=== PATIENT | female | born 1940 | race Caucasian/White ===

== ENCOUNTER → 2017-06-10 | Outpatient (CLI) | payer OTHER ==
[~2017-06-10] MED LIST: AMITRIPTYLINE H10 MG PO; ASPIRIN CHEW81 MG PO; COLACE100 MG PO; DOCUSATE SODIU100 MG PO; JENTADUETO 2.51 EACH; METHADONE HCL10 MG PO; METHADONE10 MG PO; MYRBETRIQ50 MG; NORTRIPTYLINE H10 MG PO; PLAVIX75 MG PO; POTASSIUM CHLO10 ME1 PO; TEMAZEPAM15 MG PO; ULTRAM 50MG50 MG PO; Z.0.TEMAZEPAM15 MG PO; Z.0.ULTRAM 50MG50 MG PO; ZYPREXA5 MG
[2017-06-10 17:58] LABS: ANION GAP 13.5 mmol/L (8-16); BLOOD UREA NITROGEN 10 mg/dL (7-26); BUN/CREATININE RATIO 13 (6-25); CALCIUM 9.9 mg/dL (8.4-10.2); CARBON DIOXIDE 28 mmol/L (22-29); CHLORIDE 106 mmol/L (98-107); CREATININE, SERUM 0.77 mg/dL (0.57-1.11); EST GLOMERULAR FILTRATION RATE > 60 ML/MIN (60-); GLUCOSE 118 mg/dL (74-118); POTASSIUM 3.5 mmol/L (3.5-5.1); SODIUM 144 mmol/L (136-145)
[2017-06-10 18:05] LABS: BASOPHILS % 0.4 % (0.0-1.0); EOSINOPHILS # (AUTO) 0.2 (0.0-0.4); EOSINOPHILS % 2.4 % (0.0-6.0); HEMATOCRIT 38.5 % (34.2-44.1); HEMOGLOBIN 12.1 g/dL (12.0-16.0); LYMPHOCYTES # (AUTO) 1.9 (1.0-3.2); LYMPHOCYTES % 25.5 % (18.0-39.1); MEAN CORPUSCULAR HEMOGLOBIN 27.7 pg (28-32); MEAN CORPUSCULAR HGB CONC 31.4 g/dL (31-35); MEAN CORPUSCULAR VOLUME 88.1 fL (81-99); MONOCYTES # (AUTO) 0.7 (0.2-0.8); MONOCYTES % 9.5 % (4.4-11.3); NEUTROPHILS # (AUTO) 4.6 (2.1-6.9); NEUTROPHILS % 61.9 % (38.7-80.0); PLATELET COUNT 314 x10e3/uL (140-360); RED BLOOD COUNT 4.37 x10e6/uL (3.6-5.1); RED CELL DISTRIBUTION WIDTH 14.3 % (11.7-14.4)
== END ==
LOC: NPA 12:22
DX: Z02.89 Encounter for other administrative examinations (principal)
CPT/HCPCS: 36415; 80048; 85025

== ENCOUNTER → 2017-06-17 | Outpatient (CLI) | payer OTHER ==
[2017-06-17 18:18] LABS: ANION GAP 17.1 mmol/L (8-16); BLOOD UREA NITROGEN 13 mg/dL (7-26); BUN/CREATININE RATIO 17 (6-25); CALCIUM 10.1 mg/dL (8.4-10.2); CARBON DIOXIDE 24 mmol/L (22-29); CHLORIDE 105 mmol/L (98-107); CREATININE, SERUM 0.78 mg/dL (0.57-1.11); EST GLOMERULAR FILTRATION RATE > 60 ML/MIN (60-); GLUCOSE 121 mg/dL (74-118); POTASSIUM 4.1 mmol/L (3.5-5.1); SODIUM 142 mmol/L (136-145)
[2017-06-17 18:26] LABS: BASOPHILS # (AUTO) 0.1 (0.0-0.1); BASOPHILS % 0.8 % (0.0-1.0); EOSINOPHILS # (AUTO) 0.2 (0.0-0.4); EOSINOPHILS % 3.3 % (0.0-6.0); HEMATOCRIT 43.1 % (34.2-44.1); HEMOGLOBIN 13.4 g/dL (12.0-16.0); LYMPHOCYTES # (AUTO) 1.8 (1.0-3.2); LYMPHOCYTES % 27.8 % (18.0-39.1); MEAN CORPUSCULAR HEMOGLOBIN 27.6 pg (28-32); MEAN CORPUSCULAR HGB CONC 31.1 g/dL (31-35); MEAN CORPUSCULAR VOLUME 88.9 fL (81-99); MONOCYTES # (AUTO) 0.5 (0.2-0.8); MONOCYTES % 7.7 % (4.4-11.3); NEUTROPHILS # (AUTO) 3.8 (2.1-6.9); NEUTROPHILS % 60.2 % (38.7-80.0); PLATELET COUNT 313 x10e3/uL (140-360); RED BLOOD COUNT 4.85 x10e6/uL (3.6-5.1); RED CELL DISTRIBUTION WIDTH 13.9 % (11.7-14.4)
== END ==
LOC: NPA 12:00
DX: Z02.89 Encounter for other administrative examinations (principal)
CPT/HCPCS: 36415; 80048; 85025

== ENCOUNTER 2017-11-07 08:54 | Observation (INO) | payer MEDICARE, OTHER ==
[~2017-11-07] VITALS: Ht 154.9 cm; Wt 58.1 kg
[2017-11-07] MEDS ORDERED: PAXIL20 MG PO (10:06)
[2017-11-07] MEDS ORDERED: AUSTEDO PO (10:06)
[2017-11-07] MEDS ORDERED: LOPRESSOR25 MG PO (10:06)
[2017-11-07 10:28] LABS: BASOPHILS % 0.4 % (0.0-1.0); EOSINOPHILS # (AUTO) 0.1 (0.0-0.4); EOSINOPHILS % 1.2 % (0.0-6.0); HEMATOCRIT 40.7 % (34.2-44.1); HEMOGLOBIN 12.6 g/dL (12.0-16.0); LYMPHOCYTES # (AUTO) 1.6 (1.0-3.2); MEAN CORPUSCULAR HEMOGLOBIN 26.9 pg (28-32); MEAN CORPUSCULAR VOLUME 86.8 fL (81-99); MONOCYTES # (AUTO) 0.8 (0.2-0.8); MONOCYTES % 11.3 % (4.4-11.3); NEUTROPHILS # (AUTO) 4.3 (2.1-6.9); PLATELET COUNT 257 x10e3/uL (140-360); RED BLOOD COUNT 4.69 x10e6/uL (3.6-5.1); RED CELL DISTRIBUTION WIDTH 15.7 % (11.7-14.4)
[2017-11-07] MEDS ORDERED: ASPIRIN 81 MG CHEW TAB PO ONE ×2 (10:30→12:00)
[2017-11-07 10:32] LABS: INR 0.98; PROTHROMBIN TIME 12.2 seconds (11.9-14.5)
[2017-11-07 10:33] LABS: PARTIAL THROMBOPLASTIN TIME 24.1 seconds (23.8-35.5)
[2017-11-07 10:42] LABS: ALANINE AMINOTRANSFERASE 13 IU/L (0-55); ALBUMIN 3.6 g/dL (3.5-5.0); ALBUMIN/GLOBULIN RATIO 0.9 (0.8-2.0); ALKALINE PHOSPHATASE 80 IU/L (40-150); ANION GAP 14.5 mmol/L (8-16); BLOOD UREA NITROGEN 16 mg/dL (7-26); BUN/CREATININE RATIO 21 (6-25); CALCIUM 9.9 mg/dL (8.4-10.2); CARBON DIOXIDE 25 mmol/L (22-29); CHLORIDE 108 mmol/L (98-107); CREATINE KINASE 43 IU/L (29-168); CREATININE, SERUM 0.77 mg/dL (0.57-1.11); EST GLOMERULAR FILTRATION RATE > 60 ML/MIN (60-); GLUCOSE 84 mg/dL (74-118); POTASSIUM 3.5 mmol/L (3.5-5.1); SODIUM 144 mmol/L (136-145)
--- NOTE | 2017-11-07 10:52 | Diagnostic Imaging Report ---
PROCEDURE: A single AP view of the chest. COMPARISON: Chest radiograph 01/10/17. INDICATIONS: GENERALIZED WEAKNESS FINDINGS: Lines/tubes: Midline spinal catheter is again noted. Lungs: The lungs are well inflated and clear. There is no evidence of pneumonia or pulmonary edema. Pleura: There is no pleural effusion or pneumothorax. Heart and mediastinum: The cardiomediastinal silhouette is unremarkable. Atherosclerotic calcifications of the aortic arch. Bones: No acute bony abnormality. Partially seen thoracolumbar fixation hardware. IMPRESSION: Clear lungs. No evidence of pneumonia or pulmonary edema. Dictated by: LESA FINK M.D. on 11/07/2017 at 10:56 Electronically approved by: LESA FINK M.D. on 11/07/2017 at 10:56
--- NOTE | 2017-11-07 11:25 | Diagnostic Imaging Report ---
Exam: Head CT without contrast History: Unable to ambulate Comparison studies: Multiple prior head CTs which date to 12/16 2009, most recent of 08/14/2014. Technique: Axial images were obtained from the skull base to the vertex. Coronal and sagittal images reconstructed from the axial data. Intravenous contrast: None Findings: Scalp: No abnormalities. Bones: No fractures, blastic or lytic lesions. Brain sulci: Mildly prominent. Ventricles: Mild compensatory dilatation. No hydrocephalus. Extra-axial spaces: No masses, no fluid collection. Parenchyma: No mass, acute hemorrhage or acute cortical vascular insults. There are small unchanged chronic lacunar insults in the head of the left caudate nucleus and in the right thalamus as well as small chronic insults in the bilateral cerebellar hemisphere. A few scattered hypodensities in the supratentorial white matter are nonspecific but most compatible with chronic microvascular ischemic changes. Sellar/suprasellar region: No abnormalities. Craniocervical junction: Patent foramen magnum. No Chiari one malformation. Incidental findings: Bilateral intraocular lens or placement. Atherosclerotic calcifications in the carotid siphons. IMPRESSION: No acute intracranial abnormalities. No changes from the previous head CT of 08/14/2014. Chronic findings: 1. Mild generalized volume loss. 2. Mild microvascular ischemic changes. 3. Chronic insults in the right thalamus, left caudate nucleus and cerebellum. Signed by: Dr. Naif Blackmon M.D. on 11/07/2017 11:21 AM
[2017-11-07] MEDS ORDERED: ONDANSETRON HCL INJ 2 MG/ML VIAL IV PRN (12:00)
[2017-11-07 13:01] LABS: CLARITY,URINE SL CLOUDY (CLEAR); COLOR,URINE YELLOW (YELLOW); KETONES,URINE NEGATIVE (NEGATIVE); LEUKOCYTE ESTERASE ,URINE 1+ (NEGATIVE); NITRITE,URINE NEGATIVE (NEGATIVE); PROTEIN,URINE DIPSTICK TRACE (NEGATIVE)
[2017-11-07 13:02] LABS: BILIRUBIN,URINE NEGATIVE (NEGATIVE); URINE UROBILINOGEN 0.2 mg/dL (0.2 - 1)
[2017-11-07 13:12] LABS: EPITHELIAL CELLS,URINE FEW /LPF; RBC,URINE 21-50 /HPF (0-5)
[2017-11-07 14:17] VITALS: BP 177/74
[2017-11-07 14:58] VITALS: BP 177/74
[2017-11-07] MEDS: SODIUM CHLORIDE 0.9% 1000ML 1,000 ML IV SCH (15:18)
[2017-11-07] MEDS: AUSTEDO 24 MG PO SCH (17:00)
[2017-11-07] MEDS: DOCUSATE SODIUM 100 MG CAP PO SCH (17:09)
[2017-11-07] MEDS: METOPROLOL TARTRATE 25 MG TAB PO SCH (17:09)
[2017-11-07] MEDS: TRAMADOL HCL 50 MG TAB PO SCH (17:10)
[2017-11-07 19:39] LABS: CREATINE KINASE MB 1.2 ng/mL (0-5.0)
[2017-11-07 20:00] VITALS: BP 152/88
[2017-11-07] MEDS ORDERED: TEMAZEPAM 15 MG CAP PO SCH (21:00)
[2017-11-07 21:02] VITALS: BP 152/88
[2017-11-08] VITALS: BP 137/60
[2017-11-08] MEDS: SODIUM CHLORIDE 0.9% 1000ML 1,000 ML IV SCH ×2 (01:39→12:05)
[2017-11-08 04:00] VITALS: BP 130/60
[2017-11-08 05:37] LABS: BASOPHILS % 0.6 % (0.0-1.0); EOSINOPHILS # (AUTO) 0.1 (0.0-0.4); EOSINOPHILS % 1.9 % (0.0-6.0); HEMATOCRIT 33.5 % (34.2-44.1); HEMOGLOBIN 10.3 g/dL (12.0-16.0); LYMPHOCYTES # (AUTO) 2.7 (1.0-3.2); LYMPHOCYTES % 43.4 % (18.0-39.1); MEAN CORPUSCULAR HEMOGLOBIN 27.2 pg (28-32); MEAN CORPUSCULAR HGB CONC 30.7 g/dL (31-35); MEAN CORPUSCULAR VOLUME 88.4 fL (81-99); MONOCYTES # (AUTO) 0.9 (0.2-0.8); MONOCYTES % 14.1 % (4.4-11.3); NEUTROPHILS # (AUTO) 2.5 (2.1-6.9); NEUTROPHILS % 39.7 % (38.7-80.0); PLATELET COUNT 218 x10e3/uL (140-360); RED BLOOD COUNT 3.79 x10e6/uL (3.6-5.1); RED CELL DISTRIBUTION WIDTH 15.7 % (11.7-14.4)
[2017-11-08] MEDS: TRAMADOL HCL 50 MG TAB PO SCH ×2 (05:51→16:36)
[2017-11-08 06:04] LABS: CREATINE KINASE MB 0.8 ng/mL (0-5.0)
[2017-11-08 06:29] LABS: ALANINE AMINOTRANSFERASE 11 IU/L (0-55); ALBUMIN 2.8 g/dL (3.5-5.0); ALBUMIN/GLOBULIN RATIO 0.9 (0.8-2.0); ALKALINE PHOSPHATASE 62 IU/L (40-150); ANION GAP 9.8 mmol/L (8-16); BLOOD UREA NITROGEN 14 mg/dL (7-26); BUN/CREATININE RATIO 19 (6-25); CARBON DIOXIDE 27 mmol/L (22-29); CHLORIDE 107 mmol/L (98-107); CREATININE, SERUM 0.73 mg/dL (0.57-1.11); EST GLOMERULAR FILTRATION RATE > 60 ML/MIN (60-); GLUCOSE 100 mg/dL (74-118); POTASSIUM 3.8 mmol/L (3.5-5.1); SODIUM 140 mmol/L (136-145)
[2017-11-08 07:04] LABS: FREE THYROXINE INDEX 2.2943 (1.4-3.8); THYROID STIMULATING HORMONE 1.107 uIU/mL (0.350-4.940)
[2017-11-08 08:00] VITALS: BP 125/61
[2017-11-08] MEDS ORDERED: METFORMIN PO SCH (08:00)
[2017-11-08] MEDS ORDERED: LINAGLIPTIN PO SCH (08:00)
[2017-11-08 08:12] VITALS: BP 125/61
[2017-11-08] MEDS: METOPROLOL TARTRATE 25 MG TAB PO SCH ×2 (08:27→16:36)
[2017-11-08] MEDS: AUSTEDO 24 MG PO SCH ×2 (08:27→16:36)
[2017-11-08] MEDS ORDERED: ASPIRIN 81 MG CHEW TAB PO SCH (09:00)
[2017-11-08] MEDS ORDERED: MIRABEGRON 50 MG PO SCH (09:00)
[2017-11-08] MEDS ORDERED: CLOPIDOGREL BISULFATE 75 MG TAB PO SCH (09:00)
[2017-11-08] MEDS ORDERED: PAROXETINE HCL 20 MG TAB PO SCH (09:00)
[2017-11-08] MEDS ORDERED: NON-FORMULARY MEDICATION INH SCH (09:00)
[2017-11-08 11:59] VITALS: BP 104/54
[2017-11-08 16:00] VITALS: BP 152/67
[2017-11-08] MEDS: DOCUSATE SODIUM 100 MG CAP PO SCH (16:36)
[2017-11-08] MEDS ORDERED: NITROFURANTOIN100 MG PO (16:38)
== END 2017-11-08 17:49 ==
LOC: ER 08:56 → ERHOLD 11:53 → IMCU 14:00
PROVIDERS: ADMIT Family Medicine; ATTEND Family Medicine
DX: R53.1 Weakness (principal); E11.9 Type 2 diabetes mellitus without complications; W06.XXXA Fall from bed, initial encounter; Z91.81 History of falling; I10 Essential (primary) hypertension; F41.9 Anxiety disorder, unspecified
CPT/HCPCS: 36415 ×2; 70450; 71045; 80053 ×2; 81001; 82550 ×2; 82553 ×2; 82670; 82948 ×2; 83735; 83880; 84436; 84443; 84479; 84484 ×2; 85025 ×2; 85610; 85730; 87086; 93005 ×2; 96361; 97116; 97162; 97530; 99285; G0378 ×2; G8978; G8979; J7030 ×2

== ENCOUNTER 2017-12-05 05:57 | Emergency (ER) | payer MEDICARE, OTHER ==
[~2017-12-05] VITALS: Ht 154.9 cm; Wt 58.1 kg
[~2017-12-05 05:57] MED LIST changes: +AUSTEDO PO; +LOPRESSOR25 MG PO; +NITROFURANTOIN100 MG PO; +PAXIL20 MG PO
[2017-12-05] MEDS ORDERED: ALBUTEROL/IPRATROPIUM 3 ML NEB NEB ONE (06:30)
[2017-12-05 06:51] LABS: BASOPHILS % 0.4 % (0.0-1.0); EOSINOPHILS # (AUTO) 0.2 (0.0-0.4); EOSINOPHILS % 3.1 % (0.0-6.0); HEMOGLOBIN 11.3 g/dL (12.0-16.0); LYMPHOCYTES # (AUTO) 2.2 (1.0-3.2); MEAN CORPUSCULAR HGB CONC 30.5 g/dL (31-35); MEAN CORPUSCULAR VOLUME 88.5 fL (81-99); MONOCYTES # (AUTO) 0.9 (0.2-0.8); MONOCYTES % 11.7 % (4.4-11.3); NEUTROPHILS # (AUTO) 4.4 (2.1-6.9); NEUTROPHILS % 56.5 % (38.7-80.0); PLATELET COUNT 349 x10e3/uL (140-360); RED BLOOD COUNT 4.18 x10e6/uL (3.6-5.1)
[2017-12-05 07:00] LABS: INR 1.32; PROTHROMBIN TIME 15.4 seconds (11.9-14.5)
[2017-12-05] MEDS ORDERED: METHYLPREDNISOLONE SOD SUCC 125 MG/2ML VIAL IV ONE (07:00)
[2017-12-05 07:01] LABS: PARTIAL THROMBOPLASTIN TIME 28.1 seconds (23.8-35.5)
[2017-12-05 07:15] LABS: ALANINE AMINOTRANSFERASE 30 IU/L (0-55); ALBUMIN 3.5 g/dL (3.5-5.0); ALBUMIN/GLOBULIN RATIO 0.9 (0.8-2.0); ALKALINE PHOSPHATASE 111 IU/L (40-150); BLOOD UREA NITROGEN 19 mg/dL (7-26); BUN/CREATININE RATIO 23 (6-25); CALCIUM 10.9 mg/dL (8.4-10.2); CARBON DIOXIDE 27 mmol/L (22-29); CHLORIDE 102 mmol/L (98-107); CREATINE KINASE 39 IU/L (29-168); CREATININE, SERUM 0.83 mg/dL (0.57-1.11); EST GLOMERULAR FILTRATION RATE > 60 ML/MIN (60-); GLUCOSE 126 mg/dL (74-118); SODIUM 140 mmol/L (136-145)
--- NOTE | 2017-12-05 08:46 | Diagnostic Imaging Report ---
PROCEDURE: A single AP view of the chest. COMPARISON: Patients [facility], , CHEST SINGLE (PORTABLE), 11/07/2017, 10:35. INDICATIONS: SHORTNESS OF BREATH, PNEUMONIA FINDINGS: Lines/tubes: Spinal stimulator wire again noted. Lungs: The lungs are well inflated and clear. There is no evidence of pneumonia or pulmonary edema. Pleura: There is no pleural effusion or pneumothorax. Heart and mediastinum: The heart and the mediastinum are unremarkable. Calcification within the aorta. Bones: No acute bony abnormality. Partially visualized hardware involving the thoracic and lumbar spine. IMPRESSION: No acute cardiopulmonary disease. Jimy Win D.O. Dictated by: Jimy Win D.O. on 12/05/2017 at 7:12 Electronically approved by: Jimy Win D.O. on 12/05/2017 at 7:12
[2017-12-05] MEDS ORDERED: ADVAIR 100-501 EACH INH (08:50)
[2017-12-05] MEDS ORDERED: PREDNISONE20 MG PO (08:51)
[2017-12-05 09:31] VITALS: BP 157/74
== END 2017-12-05 09:30 | disposition home or self-care (01) ==
LOC: ER 05:57
DX: R06.00 Dyspnea, unspecified (principal); J44.9 Chronic obstructive pulmonary disease, unspecified; E11.9 Type 2 diabetes mellitus without complications; I48.91 Unspecified atrial fibrillation; F32.9 Major depressive disorder, single episode, unspecified; G89.29 Other chronic pain; Z86.718 Personal history of other venous thrombosis and embolism
CPT/HCPCS: 36415; 71045; 80053; 82550; 82553; 83880; 84484; 85025; 85610; 85730; 93005; 94640; 99284; J2930

== ENCOUNTER 2019-03-09 10:34 | Inpatient (IN) | payer MEDICARE, OTHER ==
[~2019-03-09] VITALS: Ht 154.9 cm; Wt 59.0 kg
[~2019-03-09 10:34] MED LIST changes: +ADVAIR 100-501 EACH INH; +PREDNISONE20 MG PO
--- NOTE | 2019-03-09 10:55 | NUR ---
NOTIFIED RT OF NEBS/ABG
[2019-03-09] MEDS ORDERED: SODIUM CHLORIDE 0.9% 1000ML 1,000 ML IV STA (10:57)
[2019-03-09] MEDS ORDERED: AZITHROMYCIN 500MG/NS 250 ML 250 ML IV STA (10:57)
[2019-03-09] MEDS ORDERED: FAMOTIDINE 20 MG/2 ML VIAL IV STA (10:57)
[2019-03-09] MEDS ORDERED: ALBUTEROL SULF 0.083% NEB SOLN 3 ML NEB NEB STA (10:57)
[2019-03-09] MEDS ORDERED: METHYLPREDNISOLONE SOD SUCC 125 MG/2ML VIAL IV ONE ×2 (11:00→12:00)
[2019-03-09] MEDS ORDERED: ALBUTEROL/IPRATROPIUM 3 ML NEB NEB ONE (11:00)
[2019-03-09] MEDS ORDERED: ALBUTEROL/IPRATROPIUM 3 ML NEB ONE (11:06)
--- NOTE | 2019-03-09 11:14 | Diagnostic Imaging Report ---
Chest, 1 view, 03/09/2019. History: Shortness of breath. Comparison: 12/05/2017. Findings: The cardiomediastinal silhouette and pulmonary vasculature are within normal limits for a portable exam. There is no focal consolidation or pleural effusion. Degenerative changes are present in the right shoulder. Thoracic spinal stimulator device and surgical hardware again noted. There are no acute osseous or soft tissue abnormalities. Impression: No acute cardiopulmonary abnormality. Signed by: Valentino Samaniego on 03/09/2019 11:11 AM
[2019-03-09] MEDS ORDERED: AZITHROMYCIN 500MG/SOD CHL 0.9% 250ML BAG IV SCH (11:15)
[2019-03-09] MEDS ORDERED: CEFTRIAXONE SOD 1 GM VIAL IV SCH (11:15)
[2019-03-09] MEDS ORDERED: CEFTRIAXONE SOD 1 GM/NS 50 ML 50 ML IV ONE (11:30)
[2019-03-09 11:32] LABS: ABG HCO3 28 mmol/L (23-28); ABG PCO2 49 mmHg (41-51); ABG PH 7.36 (7.31-7.41); ABG PO2 98 mmHg (80-105)
[2019-03-09 11:35] LABS: BASOPHILS % 0.4 % (0.0-1.0); EOSINOPHILS # (AUTO) 0.1 (0.0-0.4); EOSINOPHILS % 0.9 % (0.0-6.0); HEMATOCRIT 45.8 % (34.2-44.1); HEMOGLOBIN 13.6 g/dL (12.0-16.0); LYMPHOCYTES % 25.3 % (18.0-39.1); MEAN CORPUSCULAR HGB CONC 29.7 g/dL (31-35); MEAN CORPUSCULAR VOLUME 94.4 fL (81-99); MONOCYTES # (AUTO) 0.7 (0.2-0.8); NEUTROPHILS # (AUTO) 5.1 (2.1-6.9); NEUTROPHILS % 64.1 % (38.7-80.0); PLATELET COUNT 263 x10e3/uL (140-360); RED BLOOD COUNT 4.85 x10e6/uL (3.6-5.1); RED CELL DISTRIBUTION WIDTH 13.2 % (11.7-14.4)
[2019-03-09] MEDS: FAMOTIDINE 20 MG/2 ML VIAL IV SCH ×2 (11:42→21:14)
[2019-03-09 11:49] LABS: INR 1.02; PROTHROMBIN TIME 13.9 seconds (11.9-14.5)
[2019-03-09 11:50] LABS: PARTIAL THROMBOPLASTIN TIME 26.4 seconds (23.8-35.5)
[2019-03-09] MEDS ORDERED: METHYLPREDNISOLONE SOD SUCC 40 MG/ML VIAL 1ML IV SCH ×2 (12:00→18:00)
[2019-03-09 12:01] LABS: ALANINE AMINOTRANSFERASE 12 IU/L (0-55); ALBUMIN 3.7 g/dL (3.5-5.0); ALKALINE PHOSPHATASE 75 IU/L (40-150); ANION GAP 14.4 mmol/L (8-16); BLOOD UREA NITROGEN 12 mg/dL (7-26); BUN/CREATININE RATIO 15 (6-25); CALCIUM 10.5 mg/dL (8.4-10.2); CARBON DIOXIDE 31 mmol/L (22-29); CHLORIDE 100 mmol/L (98-107); CREATINE KINASE 45 IU/L (29-168); CREATININE, SERUM 0.79 mg/dL (0.57-1.11); EST GLOMERULAR FILTRATION RATE > 60 ML/MIN (60-); GLUCOSE 123 mg/dL (74-118); POTASSIUM 4.4 mmol/L (3.5-5.1); SODIUM 141 mmol/L (136-145)
[2019-03-09 12:08] LABS: BILIRUBIN,URINE NEGATIVE (NEGATIVE); CLARITY,URINE SL CLOUDY (CLEAR); COLOR,URINE YELLOW (YELLOW); KETONES,URINE 1+ (NEGATIVE); LEUKOCYTE ESTERASE ,URINE NEGATIVE (NEGATIVE); NITRITE,URINE NEGATIVE (NEGATIVE); PROTEIN,URINE DIPSTICK 1+ (NEGATIVE); URINE UROBILINOGEN 0.2 mg/dL (0.2 - 1)
[2019-03-09 12:15] LABS: MAGNESIUM 1.9 MG/DL (1.3-2.1)
[2019-03-09 12:26] LABS: BACTERIA,URINE MANY /HPF; RBC,URINE >50 /HPF (0-5); WBC,URINE (MAN) >50 /HPF (0-5)
[2019-03-09 12:28] LABS: EPITHELIAL CELLS,URINE MODERATE /LPF
[2019-03-09 12:36] LABS: THYROID STIMULATING HORMONE 0.598 uIU/mL (0.350-4.940)
[2019-03-09 13:48] VITALS: BP 148/68
--- NOTE | 2019-03-09 13:48 | NUR ---
Received patient from ER. 2 L NC in placed with 02 sat 100%. Respiration even and unlabored. No acute distress noted. Call light in reach.
[2019-03-09] MEDS ORDERED: TRAMADOL HCL 50 MG TAB PO PRN (14:00)
[2019-03-09 14:02] VITALS: BP 148/68
[2019-03-09] MEDS: TRAMADOL HCL 50 MG TAB PO SCH ×2 (15:00→21:14)
[2019-03-09] MEDS: GABAPENTIN 100 MG CAP PO SCH ×2 (15:31→21:14)
[2019-03-09 16:11] VITALS: BP 124/60
[2019-03-09] MEDS ORDERED: DOCUSATE SODIUM 100 MG CAP PO SCH (17:00)
[2019-03-09] MEDS ORDERED: NITROFURANTOIN MACROCRYSTALS 100 MG CAP PO SCH (17:00)
[2019-03-09] MEDS: METOPROLOL TARTRATE 25 MG TAB PO SCH (18:33)
[2019-03-09] MEDS ORDERED: SALMETEROL/FLUTICASONE 100/50 INH SCH (19:00)
--- NOTE | 2019-03-09 19:02 | NUR ---
Report given to night shift manager. Respiration even and unlabored without SOB. Call light in reach. Family member at bedside.
[2019-03-09 19:05] VITALS: BP 114/63
[2019-03-09] MEDS ORDERED: TRAZODONE HCL50 MG PO (19:52)
[2019-03-09] MEDS ORDERED: XARELTO10 MG PO (19:58)
[2019-03-09] MEDS ORDERED: AUSTEDO12 MG PO (19:58)
[2019-03-09] MEDS ORDERED: OXYBUTYNIN CHLOR5 MG PO (19:58)
[2019-03-09] MEDS ORDERED: JARDIANCE25 MG PO (19:59)
[2019-03-09] MEDS: IPRATROPIUM BROMIDE 0.02% 2.5 ML NEB NEB SCH ×2 (20:20→23:00)
[2019-03-09 20:55] LABS: CREATINE KINASE 40 IU/L (29-168)
[2019-03-09] MEDS: TEMAZEPAM 15 MG CAP PO SCH (21:14)
[2019-03-09] MEDS: METHYLPREDNISOLONE SOD SUCC 40 MG/ML VIAL 1ML IV SCH (21:14)
[2019-03-09] MEDS: DULOXETINE HCL 30 MG DELAYED RELEASE PO SCH (21:14)
[2019-03-09] MEDS: ATORVASTATIN 20 MG TAB PO SCH (21:14)
[2019-03-09] MEDS: TRAZODONE HCL 50 MG TAB PO SCH (21:49)
[2019-03-09 23:00] VITALS: BP 110/58
--- NOTE | 2019-03-09 23:26 | Consultation ---
DATE OF CONSULTATION: Pulmonary Consultation Patient of Dr. Cruzito Muñoz. HISTORY OF PRESENT ILLNESS: Charming, but unfortunate 78-year-old woman, resident of an apparently the half-way or assisted living in [place], history of severe back pain, atrial fibrillation, diabetes, bronchial asthma, severe COPD, chronic back pain related to scoliosis, five surgical attempts of repair with Robertson rods. Smoked two packs a day for over 50 years, quit for 10 years and started in her assisted living. 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 PHYSICAL EXAMINATION: GENERAL: Well-developed white female, anxious. VITAL SIGNS: Temperature 98.8, pulse 103, blood pressure 124/80. HEAD: Normocephalic, atraumatic. LUNGS: Bilateral rales, left greater than right. HEART: Regular rhythm. ABDOMEN: Nontender. EXTREMITIES: Nonedematous. There is evidence of multiple back surgeries with long midline scar. LABORATORY DATA: White count is normal 7.9, hemoglobin 13.6. IMPRESSION: Acute exacerbation of chronic obstructive pulmonary disease. No obvious pneumonia. On chest x-ray, there appears to be pulmonary scars. We will request CT of the chest. Continue broad-spectrum antibiotics; not seen better, would consider changing to more robust gram-negative cover. The patient had Klebsiella in the past, complicated by empyema requiring decortication. Continue moderate dose corticosteroids. Thank you for this kind referral. MD MARLYS Mills/DWAYNE /[id number]
[2019-03-10] VITALS (8 sets, daily range): BP systolic 110–147; BP diastolic 54–74
[2019-03-10] MEDS: IPRATROPIUM BROMIDE 0.02% 2.5 ML NEB NEB SCH ×6 (03:00→22:50)
[2019-03-10 05:45] LABS: EOSINOPHILS # (AUTO) 0.1 (0.0-0.4); EOSINOPHILS % 1.7 % (0.0-6.0); HEMATOCRIT 39.6 % (34.2-44.1); HEMOGLOBIN 12.2 g/dL (12.0-16.0); LYMPHOCYTES # (AUTO) 0.8 (1.0-3.2); LYMPHOCYTES % 13.7 % (18.0-39.1); MEAN CORPUSCULAR HEMOGLOBIN 28.4 pg (28-32); MEAN CORPUSCULAR HGB CONC 30.8 g/dL (31-35); MEAN CORPUSCULAR VOLUME 92.1 fL (81-99); MONOCYTES # (AUTO) 0.3 (0.2-0.8); MONOCYTES % 5.3 % (4.4-11.3); NEUTROPHILS # (AUTO) 4.8 (2.1-6.9); NEUTROPHILS % 78.8 % (38.7-80.0); PLATELET COUNT 232 x10e3/uL (140-360); RED CELL DISTRIBUTION WIDTH 13.3 % (11.7-14.4)
[2019-03-10 06:10] LABS: CREATINE KINASE MB 1.6 ng/mL (0-5.0)
[2019-03-10 06:32] LABS: ALANINE AMINOTRANSFERASE 10 IU/L (0-55); ALBUMIN 3.5 g/dL (3.5-5.0); ALBUMIN/GLOBULIN RATIO 1.1 (0.8-2.0); ALKALINE PHOSPHATASE 68 IU/L (40-150); ANION GAP 13.9 mmol/L (8-16); BLOOD UREA NITROGEN 18 mg/dL (7-26); BUN/CREATININE RATIO 22 (6-25); CALCIUM 10.4 mg/dL (8.4-10.2); CARBON DIOXIDE 30 mmol/L (22-29); CHLORIDE 99 mmol/L (98-107); CREATININE, SERUM 0.83 mg/dL (0.57-1.11); EST GLOMERULAR FILTRATION RATE > 60 ML/MIN (60-); GLUCOSE 150 mg/dL (74-118); MAGNESIUM 1.9 MG/DL (1.3-2.1); POTASSIUM 4.9 mmol/L (3.5-5.1); SODIUM 138 mmol/L (136-145)
[2019-03-10] MEDS: METHYLPREDNISOLONE SOD SUCC 40 MG/ML VIAL 1ML IV SCH ×2 (07:02→17:52)
--- NOTE | 2019-03-10 07:23 | NUR ---
Rcvd patient in report this am. Patient is asleep in bed at this time. No s/s of distress noted
[2019-03-10] MEDS: TRAMADOL HCL 50 MG TAB PO SCH ×3 (08:24→20:35)
[2019-03-10] MEDS: CLOPIDOGREL BISULFATE 75 MG TAB PO SCH (08:24)
[2019-03-10] MEDS: METOPROLOL TARTRATE 25 MG TAB PO SCH ×2 (08:24→17:14)
[2019-03-10] MEDS: FAMOTIDINE 20 MG/2 ML VIAL IV SCH ×2 (08:24→20:34)
[2019-03-10] MEDS: GABAPENTIN 100 MG CAP PO SCH ×3 (08:24→20:35)
[2019-03-10] MEDS ORDERED: ASPIRIN 81 MG CHEW TAB PO SCH (09:00)
[2019-03-10] MEDS ORDERED: PREDNISONE 20 MG TAB PO SCH (09:00)
[2019-03-10] MEDS: LEVALBUTEROL HCL SOLN NEBU 0.63 MG/3 ML NEB INH SCH ×3 (09:00→22:50)
[2019-03-10] MEDS: AZITHROMYCIN 500MG/NS 250 ML 250 ML IV SCH (09:08)
[2019-03-10] MEDS: CEFTRIAXONE SOD 1 GM/NS 50 ML 50 ML IV SCH (09:08)
--- NOTE | 2019-03-10 10:05 | Diagnostic Imaging Report ---
EXAM: CT Chest WITHOUT intravenous contrast 03/10/2019 5:00 AM INDICATION: Shortness of breath, COPD COMPARISON: Chest radiograph of 03/09/2019 TECHNIQUE: Chest was scanned utilizing a multidetector helical scanner from the lung apex through the level of the adrenal glands without administration of IV contrast. Coronal and sagittal reformations were obtained. Routine protocol was performed. IV CONTRAST: None RADIATION DOSE: Total DLP: 418.7 mGy*cm. Dose modulation, iterative reconstruction, and/or weight based adjustment of the mA/kV was utilized to reduce the radiation dose to as low as reasonably achievable. COMPLICATIONS: None FINDINGS: LINES/ TUBES: None. LUNGS AND AIRWAYS: The central airways are patent. There is severe diffuse lateral upper lobe predominant centrilobular emphysema. 14 mm more focal area of emphysema versus a cavitary nodule at the right upper lobe (series 2 image 46). Scattered right greater than left lower lobe dependent subsegmental bronchial mucus plugging. No focal pneumonia or pulmonary edema. PLEURA: No pleural effusion. No pneumothorax. HEART AND MEDIASTINUM: The thyroid gland is normal. No supraclavicular, mediastinal, or hilar lymphadenopathy. The heart is not enlarged. No pericardial effusion. Diffuse atherosclerotic calcifications involve the coronary arteries, aorta, and proximal great vessels. UPPER ABDOMEN: Limited noncontrast images of the upper abdomen demonstrate no focal abnormality of the partially visualized liver, spleen, pancreas, adrenals, or upper most kidneys. There is a small sliding hiatal hernia. BONES: Diffuse osseous fusion of much of the thoracic spine. No acute osseous injury. Exaggerated thoracic kyphosis. Partially visualized thoracic spine posterior fusion hardware. Nerve stimulator lead terminates at approximately T8. SOFT TISSUES: Bilateral saline breast implants. No axillary, subpectoral or internal mammary lymphadenopathy. Remaining soft tissues appear unremarkable. IMPRESSION: Diffuse bilateral centrilobular emphysema. 14 mm more focal area of emphysema versus a cavitary nodule. Short interval follow-up with chest CT at 3-6 months is recommended. No focal pneumonia or pulmonary edema. Scattered right greater than left lower lobe dependent subsegmental bronchial mucus plugging can be seen with aspiration. Diffuse atherosclerotic arterial calcifications including of the coronary arteries. Signed by: Brandyn Bruce MD on 03/10/2019 10:01 AM
[2019-03-10] MEDS ORDERED: MORPHINE SULFATE INJ 4 MG/ML INJ 1ML IV PRN (10:15)
[2019-03-10] MEDS: MORPHINE SULFATE 2 MG/ML SYR 1ML IV PRN (13:15)
--- NOTE | 2019-03-10 13:39 | History and Physical ---
CHIEF COMPLAINT: This is a 78-year-old female, who comes to the hospital with shortness of breath and dyspnea. HISTORY OF PRESENT ILLNESS: Ms. Celeste Montejo with a history of COPD, history of CAD, history of hypertension, history of hyperlipidemia, and history of O2 dependency, who was in usual state of health until the patient started to have dyspnea, which was moderate and worsened by walking and exertion. The patient also had some audible wheezing and the patient was brought to the emergency room and found to have COPD exacerbation, admitted to the hospital. PAST MEDICAL HISTORY: History of hypertension, history of diabetes mellitus, history of COPD, emphysema, history of atrial fibrillation, history of asthma, history of chronic low back pain, history of CAD. PAST SURGICAL HISTORY: History of multiple back surgeries. MEDICATIONS: The patient takes aspirin, clopidogrel, docusate, Jardiance, fluticasone, Jentadueto, metoprolol, Myrbetriq, nitrofurantoin, paroxetine, prednisone 20 mg daily, Xarelto 10 mg daily, temazepam 15 mg at night, tramadol 50 mg, and trazodone 50 mg too. ALLERGIES: THE PATIENT IS ALLERGIC TO OLANZAPINE AND SCOPOLAMINE. SOCIAL HISTORY: History of smoking in the past. Lives in an assisted living facility. The patient is not very happy with that at this point of time. FAMILY HISTORY: History of diabetes, history of hypertension, history of hyperlipidemia. REVIEW OF SYSTEMS: Negative for chest pain. Positive for shortness of breath, exertional. No nausea, vomiting, or diarrhea. No constipation. No rectal bleeding. No hematochezia. No hematemesis either. PHYSICAL EXAMINATION: VITAL SIGNS: Temperature is 96.5, pulse of 85, respirations 16, blood pressure is 110/58, pulse oximetry 100% on 2 L of oxygen. The patient is on BiPAP at this time. HEENT: Normocephalic, atraumatic. The patient is cachectic. CVS: S1 and S2 normal. Regular rate and rhythm. LUNGS: Decreased air entry into lung bases. Positive for audible wheezes bilaterally. ABDOMEN: Nontender, nondistended. EXTREMITIES: No clubbing, no cyanosis, no edema. LABORATORY DATA: The patient's white count is 7.93, hemoglobin of 13.6, hematocrit of 45.8. Chemistries; sodium 138, potassium 4.9, BUN of 18, creatinine 0.83, calcium is 10.4. Coags are normal. Urine, white count was positive and many bacteria. Serology influenza was negative. IMAGING STUDIES: Chest x-ray showed no acute cardiothoracic abnormalities. ASSESSMENT: 1. A 78-year-old female admitted for chronic obstructive pulmonary disease exacerbation. The patient is currently on Solu-Medrol 40 mg b.i.d. was given at q.6 hours. 2. Questionable urinary tract infection. The patient is on Rocephin and azithromycin. Cultures have been sent for urine and blood. 3. The patient's other findings includes O2 dependency. The patient is on a BiPAP at this time. 4. Hypertension. 5. Diabetes mellitus. 6. Hyperlipidemia. Continue on all current medications at this time. Further recommendation per clinical course. Dr. Mesa has been consulted. CT of the lungs is pending. For pain medication, the patient will be given tramadol and Tylenol No. 3 depending on progression. MD MILDRED Arndt/MODL /[id number]
--- NOTE | 2019-03-10 15:49 | NUR ---
I attempted to perform the bedside PFT test on this patient. I was unsuccessful because the patient had a difficult time following the basic commands to complete the test. She kept coming off the mouthpiece and coughing and stating that the mouthpeice and nose clips were making her feel claustrophobic. I tried several attempts but none of them were complete and did not show up on our machine as a trial.
[2019-03-10] MEDS: DULOXETINE HCL 30 MG DELAYED RELEASE PO SCH (20:34)
[2019-03-10] MEDS: TRAZODONE HCL 50 MG TAB PO SCH (20:35)
[2019-03-10] MEDS: ATORVASTATIN 20 MG TAB PO SCH (20:35)
[2019-03-10] MEDS: TEMAZEPAM 15 MG CAP PO SCH (20:35)
[2019-03-11] VITALS (8 sets, daily range): BP systolic 99–153; BP diastolic 45–85
[2019-03-11] MEDS: IPRATROPIUM BROMIDE 0.02% 2.5 ML NEB NEB SCH ×6 (03:15→22:45)
[2019-03-11] MEDS: METHYLPREDNISOLONE SOD SUCC 40 MG/ML VIAL 1ML IV SCH (06:03)
[2019-03-11] MEDS: LEVALBUTEROL HCL SOLN NEBU 0.63 MG/3 ML NEB INH SCH ×3 (07:00→22:45)
--- NOTE | 2019-03-11 07:24 | Progress Note ---
DATE: SUBJECTIVE: A 78-year-old female, who comes in with COPD exacerbation. The patient is currently on BiPAP, sleeping. No chest pain. No shortness of breath, but complains of low back pain, which is relentless. OBJECTIVE: VITAL SIGNS: Temperature is 96.6, pulse of 87, blood pressure is 132/58, pulse oximetry of 98%. HEENT: Normocephalic and atraumatic. Pupils are reactive. LUNGS: Decreased air entry. CVS: S1 and S2 normal. Regular rate and rhythm. ABDOMEN: Nontender, nondistended. EXTREMITIES: Positive for trace edema. LABORATORY VALUES: Today, the patient's glucoses have been running in the 270s to 128. Steroid is being given. The patient's hematology; white count is normal at 6.04 yesterday, hemoglobin of 12, hematocrit of 39.6. The patient's CT scan was done yesterday shows diffuse bilateral centrilobular emphysema, 14 mm focal area of emphysema versus cavitary nodule. Recommend a CT scan in 3 to 6 months. No focal pneumonia. Diffuse atherosclerosis and arterial calcifications. ASSESSMENT: Acute chronic obstructive pulmonary disease exacerbation. Currently, the patient is on methylprednisolone 30 mg twice a day, ipratropium and albuterol treatments. The patient continues to be on gabapentin 3 times a day and temazepam for sleep, and the patient is on Rocephin and azithromycin. Plavix for coronary artery disease. The patient's echo recently done by Dr. Rivera with EF of within 40% to 45%. PLAN: Continue with Solu-Medrol, taper steroids. Continue ambulating the patient. DVT prophylaxis and further recommendation per clinical course. We will continue to monitor the patient along with sales and service consultant. MD EDNA ArndtJ/MODL /[id number]
[2019-03-11] MEDS: CLOPIDOGREL BISULFATE 75 MG TAB PO SCH (08:40)
[2019-03-11] MEDS: METOPROLOL TARTRATE 25 MG TAB PO SCH ×2 (08:40→16:43)
[2019-03-11] MEDS: GABAPENTIN 100 MG CAP PO SCH ×3 (08:40→20:45)
[2019-03-11] MEDS: FAMOTIDINE 20 MG/2 ML VIAL IV SCH ×2 (08:40→20:45)
[2019-03-11] MEDS: TRAMADOL HCL 50 MG TAB PO SCH ×3 (08:40→20:55)
[2019-03-11] MEDS: CEFTRIAXONE SOD 1 GM/NS 50 ML 50 ML IV SCH (08:40)
[2019-03-11] MEDS: AZITHROMYCIN 500MG/NS 250 ML 250 ML IV SCH (10:06)
--- NOTE | 2019-03-11 14:25 | NUR ---
Spoke with Dr. Muñoz regarding patients concern for BS reading of 222. MD Muñoz gave orders to restart and administer home medications and to initiate a Low dose sliding scale for Humalog. Orders received and input into the computer.
[2019-03-11] MEDS ORDERED: DEXTROSE 50% SYRINGE 50 ML IV PRN (14:45)
--- NOTE | 2019-03-11 14:54 | NUR ---
IMM explained to patient. Patient signed, copy given to patient, original to chart.
--- NOTE | 2019-03-11 14:59 | NUR ---
rep Carlos with [facility] to deliver NIV to patient. Addendum: 03/11/19 at 1513 by Isabelle Osorio Carlos spoke with patient and informed her that if he delivers the NIV on the day of DC, the patient will be able to see a respiratory therapist at her home for 3 days to get acclimated to her new device. Per Carlos, patient will wait until day of DC to have vent delivered
[2019-03-11] MEDS: AUSTEDO 12 MG PO SCH (16:43)
[2019-03-11] MEDS: INSULIN LISPRO 100 UNIT/1 ML 3ML VIAL SQ SCH ×2 (16:43→20:46)
--- NOTE | 2019-03-11 18:53 | NUR ---
Received report from previous nurse. Patient in bed. Call light within reach.
[2019-03-11] MEDS: MORPHINE SULFATE 2 MG/ML SYR 1ML IV PRN (20:44)
[2019-03-11] MEDS: ATORVASTATIN 20 MG TAB PO SCH (20:45)
[2019-03-11] MEDS: TEMAZEPAM 15 MG CAP PO SCH (20:45)
[2019-03-11] MEDS: DULOXETINE HCL 30 MG DELAYED RELEASE PO SCH (20:45)
[2019-03-11] MEDS: TRAZODONE HCL 50 MG TAB PO SCH (20:45)
[2019-03-12] VITALS (7 sets, daily range): BP systolic 96–130; BP diastolic 42–58
[2019-03-12] MEDS: IPRATROPIUM BROMIDE 0.02% 2.5 ML NEB NEB SCH ×5 (02:40→19:50)
[2019-03-12 05:35] LABS: BASOPHILS % 0.1 % (0.0-1.0); EOSINOPHILS % 0.1 % (0.0-6.0); HEMATOCRIT 39.6 % (34.2-44.1); HEMOGLOBIN 11.6 g/dL (12.0-16.0); LYMPHOCYTES # (AUTO) 2.5 (1.0-3.2); MEAN CORPUSCULAR HEMOGLOBIN 27.6 pg (28-32); MEAN CORPUSCULAR HGB CONC 29.3 g/dL (31-35); MEAN CORPUSCULAR VOLUME 94.1 fL (81-99); MONOCYTES % 11.1 % (4.4-11.3); NEUTROPHILS # (AUTO) 5.2 (2.1-6.9); NEUTROPHILS % 59.5 % (38.7-80.0); PLATELET COUNT 217 x10e3/uL (140-360); RED BLOOD COUNT 4.21 x10e6/uL (3.6-5.1); RED CELL DISTRIBUTION WIDTH 13.5 % (11.7-14.4)
[2019-03-12 05:51] LABS: ANION GAP 11.8 mmol/L (8-16); BLOOD UREA NITROGEN 18 mg/dL (7-26); BUN/CREATININE RATIO 26 (6-25); CALCIUM 10.1 mg/dL (8.4-10.2); CARBON DIOXIDE 30 mmol/L (22-29); CHLORIDE 104 mmol/L (98-107); CREATININE, SERUM 0.69 mg/dL (0.57-1.11); EST GLOMERULAR FILTRATION RATE > 60 ML/MIN (60-); GLUCOSE 94 mg/dL (74-118); POTASSIUM 3.8 mmol/L (3.5-5.1); SODIUM 142 mmol/L (136-145)
[2019-03-12] MEDS: LEVALBUTEROL HCL SOLN NEBU 0.63 MG/3 ML NEB INH SCH ×2 (06:30→14:30)
--- NOTE | 2019-03-12 07:05 | NUR ---
Gave report to oncoming nurse. Call light within reach. Patient asleep in bed.
[2019-03-12] MEDS: INSULIN LISPRO 100 UNIT/1 ML 3ML VIAL SQ SCH ×4 (07:30→20:59)
[2019-03-12] MEDS: TRAMADOL HCL 50 MG TAB PO SCH ×3 (09:00→20:57)
--- NOTE | 2019-03-12 09:06 | NUR ---
PRINTED MEDICAL RECORD FROM [facility] FROM FAX AND GAVE TO NURSE
--- NOTE | 2019-03-12 09:30 | Progress Note ---
DATE: SUBJECTIVE: A 78-year-old female, who comes in with COPD exacerbation. Currently, the patient is breathing on BiPAP, feeling much better. No chest pain or shortness of breath. OBJECTIVE: VITAL SIGNS: Temperature is 96, respirations 20, pulse oximetry of 99% on 2 L of oxygen. GENERAL: The patient is alert and oriented x3. HEENT: Normocephalic, atraumatic. LUNGS: Decreased air entry into all lung bowie. ABDOMEN: Nontender, nondistended. The patient is cachectic. No pedal edema present either. MEDICATIONS: Levalbuterol, ipratropium, trazodone, atorvastatin, duloxetine, gabapentin, temazepam, famotidine, morphine 1 mg q.6 hours, metoprolol 25 mg b.i.d., clopidogrel, and Rocephin 1 g, and Zithromax. LABORATORY DATA: White count is 8.71, hemoglobin 11.6, hematocrit of 39.6. Chemistry shows sodium 142, potassium 3.8, BUN of 18, creatinine 0.69, and glucose of 94, and glucose has been running in the 100s-200s secondary to steroids. The patient's Solu-Medrol is 30 mg IV once a day. ASSESSMENT: 1. A 78-year-old female with acute exacerbation of emphysema. 2. On Solu-Medrol 30 mg twice a day, can be tapered down. On ipratropium/albuterol treatments as needed. The patient is also getting morphine for pain control. The patient is currently on Plavix for coronary artery disease and also for hypertension, she continues with the same medication. 3. Diabetes, controlled by insulin sliding scale and will be better with decrement of Solu-Medrol. Further recommendation per clinical course. We will continue to monitor the patient. Deep vein thrombosis prophylaxis and GI prophylaxis on board. Also, a SNF consult and PT, OT will be ordered today. MD MILDRED Arndt/MODL /[id number]
[2019-03-12] MEDS: METHYLPREDNISOLONE SOD SUCC 40 MG/ML VIAL 1ML IV SCH (10:45)
[2019-03-12] MEDS: JARDIANCE 25 MG PO SCH (10:45)
[2019-03-12] MEDS: AUSTEDO 12 MG PO SCH ×2 (10:45→17:50)
[2019-03-12] MEDS: MYRBETRIQ 50 MG PO SCH (10:45)
[2019-03-12] MEDS: FAMOTIDINE 20 MG/2 ML VIAL IV SCH ×2 (10:45→20:56)
[2019-03-12] MEDS: METOPROLOL TARTRATE 25 MG TAB PO SCH ×2 (10:46→17:50)
[2019-03-12] MEDS: GABAPENTIN 100 MG CAP PO SCH ×3 (10:46→20:57)
[2019-03-12] MEDS: CLOPIDOGREL BISULFATE 75 MG TAB PO SCH (10:46)
[2019-03-12] MEDS: MORPHINE SULFATE 2 MG/ML SYR 1ML IV PRN ×2 (10:47→20:10)
--- NOTE | 2019-03-12 11:32 | NUR ---
SPOKE WITH PT WHOM STATES TO CALL HER DAUGHTER RENEE [phone]. CALLED RENEE WHOM STATES SHE HAS BEEN TO [facility] AND WANTS TO HER TO RETURN. EDUCATED ABOUT NOT DOING THE PT AT THIS TIME. SHE WILL CALL AND ENCOURAGE, LET HER KNOW WE WILL START PROCESS AND CALL WHEN GET APPROVAL. EDUCATED ABOUT IMM AND WILL LEAVE COPY IN ROOM. RTF COMPLETED PASRR COMPLETED, WILL FAX CLINICALS TO [facility]
--- NOTE | 2019-03-12 13:13 | NUR ---
REP PICKED UP CLINICALS STATES SHOULD HAVE AUTH IN COUPLE OF HOURS
[2019-03-12] MEDS: AZITHROMYCIN 500MG/NS 250 ML 250 ML IV SCH (13:39)
[2019-03-12] MEDS: CEFTRIAXONE SOD 1 GM/NS 50 ML 50 ML IV SCH (13:39)
--- NOTE | 2019-03-12 13:41 | NUR ---
NURSING HOME FACILITY DISCHARGE INFORMATION PATIENT HAS BEEN ACCEPTED TO: NAME: [facility] ADDRESS: [id number] MD: CHRISTEL ROOM: 110 NURSE CALL REPORT TO: [phone] IMM SIGNED AND OBTAINED (if applicable): YES THE FOLLOWING DOCUMENTS MUST ACCOMPANY PATIENT FOR TRANSFER: COPIED CHART: CLINICALS AND PASRR
--- NOTE | 2019-03-12 14:52 | NUR ---
DAUGHTER CALLED AND STATES THAT MOTHER WANTS TO CHANGE HER MIND. WENT TO SPEAK WITH PATIENT SHE STATES SHE WANTS TO GO TO [facility] IN [place], CALLED FACILITY AND THEY ARE A SNF AND HAVE FEMALE BEDS AVAILABLE, FAXED CLINICALS AND PASRR TO [phone]
--- NOTE | 2019-03-12 16:28 | NUR ---
SPOKE WITH MELINDA, SHE JUST GOT CLINICALS, FACILITY REP WILL COME DO BEDSIDE INTERVIEW. WILL NOT BE ABLE TO GET PROCESSED TODAY WILL LET KNOW INFORMATION FOR ACCEPTANCE IN MORNING.
[2019-03-12] MEDS: ATORVASTATIN 20 MG TAB PO SCH (20:56)
[2019-03-12] MEDS: DULOXETINE HCL 30 MG DELAYED RELEASE PO SCH (20:56)
[2019-03-12] MEDS: TRAZODONE HCL 50 MG TAB PO SCH (20:56)
[2019-03-12] MEDS: TEMAZEPAM 15 MG CAP PO SCH (20:57)
[2019-03-13] MEDS: TRAMADOL HCL 50 MG TAB PO SCH ×3 (01:33→13:45)
[2019-03-13 02:16] VITALS: BP 98/50
[2019-03-13] MEDS: IPRATROPIUM BROMIDE 0.02% 2.5 ML NEB NEB SCH ×4 (03:00→11:11)
[2019-03-13 03:45] VITALS: BP 115/53
[2019-03-13] MEDS: LEVALBUTEROL HCL SOLN NEBU 0.63 MG/3 ML NEB INH SCH ×2 (07:05)
--- NOTE | 2019-03-13 07:25 | Progress Note ---
DATE: SUBJECTIVE: The patient comes in with acute exacerbation of COPD. Continued to do better. Pain management is better with morphine. The patient continues to fare better. The patient is scheduled to go back to the nursing facility where she comes from. OBJECTIVE: VITAL SIGNS: Temperature is 97.8, pulse 65, respirations 16, blood pressure is 115/53, pulse oximetry 100% on 2 L of oxygen. HEENT: Normocephalic and atraumatic. Pupils are reactive to light and accommodation. CVS: S1 and S2 normal. Regular rate and rhythm. LUNGS: Decreased air entry into all lung bowie. Scattered inspiratory wheezes. ABDOMEN: Nontender, nondistended. EXTREMITIES: No clubbing, no cyanosis, no edema. LABORATORY VALUES: White count has been normal. MICROBIOLOGY: No cultures and no growth in urine culture or blood culture. ASSESSMENT AND PLAN: 1. Chronic obstructive pulmonary disease exacerbation and emphysema exacerbation. Continue on liquids. Stop Solu-Medrol. The patient will be on prednisone twice a day for 5 days. 2. Diabetes. Continue insulin sliding scale. We will restart her home medications. 3. History of coronary artery disease. Continue on Plavix. Continue on antihypertensive and CV medication. 4. Disposition. The patient can be discharged to nursing facility. She will be discharged on doxycycline, prednisone, and also Tylenol No. 3. MD MILDRED Arndt/MODL /[id number]
[2019-03-13] MEDS: INSULIN LISPRO 100 UNIT/1 ML 3ML VIAL SQ SCH ×2 (07:30→11:56)
[2019-03-13] MEDS: METHYLPREDNISOLONE SOD SUCC 40 MG/ML VIAL 1ML IV SCH (07:30)
--- NOTE | 2019-03-13 07:30 | NUR ---
Received patient this morning, a/ox3, in bed and no resp distress, call light within reach, pains well controlled, bed in low locked position, will monitor.
[2019-03-13 07:57] VITALS: BP 105/46
[2019-03-13] MEDS: FAMOTIDINE 20 MG/2 ML VIAL IV SCH (08:41)
[2019-03-13] MEDS: GABAPENTIN 100 MG CAP PO SCH ×2 (08:42→13:45)
[2019-03-13] MEDS: AUSTEDO 12 MG PO SCH (08:42)
[2019-03-13] MEDS: METOPROLOL TARTRATE 25 MG TAB PO SCH (08:42)
[2019-03-13] MEDS: MYRBETRIQ 50 MG PO SCH (08:42)
[2019-03-13] MEDS: CLOPIDOGREL BISULFATE 75 MG TAB PO SCH (08:42)
[2019-03-13] MEDS: JARDIANCE 25 MG PO SCH (08:42)
[2019-03-13] MEDS: AZITHROMYCIN 500MG/NS 250 ML 250 ML IV SCH (08:43)
[2019-03-13] MEDS: MORPHINE SULFATE 2 MG/ML SYR 1ML IV PRN (08:55)
[2019-03-13] MEDS: CEFTRIAXONE SOD 1 GM/NS 50 ML 50 ML IV SCH (09:00)
[2019-03-13 09:38] VITALS: BP 105/56
--- NOTE | 2019-03-13 10:10 | NUR ---
Rounds by Dr. Mesa and confirms it is ok to discharge patient from his standpoint to longterm if ECHO readings are completed
--- NOTE | 2019-03-13 10:44 | NUR ---
WAS TOLD BY FACILITY THAT SHE CANNOT GO TO THEIR BUILDING WITHOUT A OOH DNR. WENT TO ROOM GOT SIGNATURE WITH WITNESS, TOOK TO DR OFFICE THEY SCANNED INTO THEIR RECORDS FILED IN CHART, FAXED TO BUILDING, GAVE 5 COPIES TO PATIENT AND CALLED DAUGHTER TO LET HER KNOW WHERE THE COPIES WERE FOR HER RECORDS.
--- NOTE | 2019-03-13 10:49 | NUR ---
[facility] FACILITY DISCHARGE INFORMATION PATIENT HAS BEEN ACCEPTED TO: NAME: [facility] ADDRESS: [id number] [id number] ACCEPTING BUTTON BREAKER OPERATOR:OMAR DEGROOT ACCEPTING MD: BROOKLYNN ROOM:137 NURSE CALL REPORT TO: [phone] IMM SIGNED AND OBTAINED (if applicable): IMM THE FOLLOWING DOCUMENTS MUST ACCOMPANY PATIENT FOR TRANSFER: COPIED CHART: YES RTF: COMPLETED [id number] DNR: ON CHART AND GIVEN TO PT
[2019-03-13] MEDS ORDERED: TYLENOL # 31 EA PO (10:54)
[2019-03-13] MEDS ORDERED: DOXYCYCLINE HY100 MG PO (10:56)
[2019-03-13] MEDS ORDERED: PREDNISONE20 MG PO (10:56)
--- NOTE | 2019-03-13 11:17 | NUR ---
Called and gave report to CALI Johnson receiving patient at the SNF. Patient OOB and ambulated to bathroom with assistance, medicated for pain and no distress, will monitor.
[2019-03-13 11:27] VITALS: BP 98/46
[2019-03-13] MEDS ORDERED: FAMOTIDINE 20 MG TAB PO SCH (11:30)
--- NOTE | 2019-03-13 13:55 | NUR ---
Patient stable on discharge, medicated for pain, neuropathy and patient keeps saying her legs are numb from her neuropathy. Usually relieved with medication. IV line removed and cath tip in place, dressing applied. Patient picked up by EMT
== END 2019-03-13 13:53 | DRG 190 ==
LOC: ER 10:34 → ERHOLD 11:38 → MED/SURG 13:48
PROVIDERS: ADMIT Family Medicine; ATTEND Family Medicine
DX: J43.9 Emphysema, unspecified (principal); J96.91 Respiratory failure, unspecified with hypoxia; I10 Essential (primary) hypertension; E11.9 Type 2 diabetes mellitus without complications; E78.5 Hyperlipidemia, unspecified; M41.9 Scoliosis, unspecified; J40 Bronchitis, not specified as acute or chronic; Z99.81 Dependence on supplemental oxygen; I25.10 Atherosclerotic heart disease of native coronary artery without angina pectoris; I48.0 Paroxysmal atrial fibrillation; Z79.01 Long term (current) use of anticoagulants; Z87.891 Personal history of nicotine dependence; Z66 Do not resuscitate
CPT/HCPCS: 36415; 71045; 71250; 80048; 80053; 81001; 82550; 82553; 82805; 82948; 83605; 83735; 83880; 84100; 84443; 84484; 85025; 85610; 85730; 87040; 87086; 87400; 93005; 94640; 94660; 97139; 99284; J0456; J0696; J2270; J2920; J2930; J7030